=== PATIENT | male | born 1940 | race Caucasian/White ===

== ENCOUNTER 2025-04-06 17:25 | Emergency (ER) | payer OTHER, SELFPAY ==
[2025-04-06 17:41] VITALS: BP 163/70; PULSE 81; RESP 18; TEMP 36.7; O2SAT 97; BMI 32.0
--- NOTE | 2025-04-06 17:54 | EDNOTE_ITS ---
<Statement entered by Estela Disla MD - 04/07/25 09:35> As co-signing physician, I was present and available for consult prn. I concur with the plan and care as documented by the midlevel provider. ED Dental RME/HPI General Chief complaint: Dental/Oral/Throat Stated complaint: Tooth pain right lower jaw Time Seen by Provider: 04/06/25 17:40 Arrival date/time: 04/06/25 17:25 RME / HPI RME / HPI Narrative: 85-year-old male patient came in for evaluation regarding right lower premolar dental cavity with pain and tenderness. Onset of symptoms for the last few days. Denies any difficulty swallowing denies any fever denies any other complaints. No medications taken prior to arrival. Related Data Home Medications ?Medication ?Instructions ?Recorded ?Confirmed ramipril 10 mg capsule 10 mg PO BID 12/07/17 Previous Rx's ?Medication ?Instructions ?Recorded naproxen 500 mg tablet (Naprosyn) 500 mg PO Q12H #10 t abs 12/07/17 amoxicillin 875 mg-potassium 1 tab PO BID #14 tabs 02/23 clavulanate 125 mg tablet ibuprofen 600 mg tablet 600 mg PO Q8H PRN pain #20 t abs 04/06/25 Allergies Allergy/AdvReac Type Severity Reaction Status Date / Time acetaminophen (From Vicodin) Allergy Severe Agitated Verified 04/06/25 17:29 diphenhydramine Allergy Severe Agitated Verified 04/06/25 17:29 hydrocodone (From Vicodin) Allergy Severe Agitated Verified 04/06/25 17:29 kiwi Allergy Severe Swelling Verified 04/06/25 17:29 of Lip/Tongue/Throat Review of Systems Review of Systems Narrative Review of Systems: Review of system reviewed and within normal limits except mentioned in HPI ED Exam Narrative Physical exam: VITAL SIGNS: Reviewed. GENERAL APPEARANCE: Alert and interactive, follows commands, no acute distress, HEAD AND FACE: Non-traumatic. ENT: PERRL, pink conjunctivitis, eyelid no trauma, Mucous membrane moist. Right lower premolar dental cavity, with tenderness, and gumline swelling NECK: Supple, nontender, no nuchal rigidity. CHEST: No tenderness, no crepitus, no paradoxical movement, no retractions. LUNGS: Clear, well ventilated, symmetric, no rales, no wheezing, no ronchi, no stridor, good breath sounds bilaterally. HEART: Regular rate, regular rhythm, no murmur, no gallops. ABDOMEN: Soft, positive bowel sounds, nondistended, no guarding, nontender, no rebound, no masses, RECTAL: Deferred. GENITAL: Deferred. NEUROLOGICAL: Gross motor function intact sensory function intact, Appropriate for age. MUSCULOSKELETAL: low back nontender, full range of motion. EXTREMITIES: Nontender, full range of motion. SKIN: Color pink, dry, no rash, no lacerations, no abrasions, no contusions. LYMPHATICS: Deferred. Course Quality Measures none Orders Category Date Time Status Amoxicillin/Pot Clav 875 [Augmentin 875] Med 04/06/25 17:53 Discontinued 1 tab PO X1 ONE Ibuprofen Tab [Motrin Tab] Med 04/06/25 17:53 Discontinued 800 mg PO X1 ONE Vital Signs Vital signs: Vital Signs Temperature 98.1 F 04/06/25 17:41 Pulse Rate 81 04/06/25 17:41 Respiratory Rate 18 04/06/25 17:41 Blood Pressure 163/70 H 04/06/25 17:41 Pulse Oximetry (%) 97 04/06/25 17:41 Oxygen Delivery Method Room Air 04/06/25 17:41 Dental / Oral MDM Narrative MDM Narrative:: 85-year-old male patient came in for evaluation regarding right lower premolar dental cavity with pain and tenderness. Onset of symptoms for the last few days. Denies any difficulty swallowing denies any fever denies any other complaints. No medications taken prior to arrival. Empiric antibiotic treatment started in the emergency room patient was advised to see dentist tomorrow. Patient data External records reviewed:: None Clinical information provided by:: patient Social determinants that could affect healthcare access:: none Patient has the following chronic illnesses:: None How is presenting disease/condition affected by chronic disease/condition?: no chronic disease Evaluation data The following diagnostics were reviewed and interpreted by me:: other (specify) (None) Lab and/or radiology exams considered but not ordered:: None Interpretation Summary: None Medications / Prescriptions Medications or Prescriptions considered but not ordered:: None Medication administrations:: Medication Administration History Discontinued Medications Amoxicillin/Clavulanate Potassium (Amoxicillin/Pot Clav 875 Tablet) 1 tab PO X1 ONE Stop: 04/06/25 17:54 Ibuprofen (Ibuprofen Tab 400 Mg Tablet) 800 mg PO X1 ONE Stop: 04/06/25 17:54 Augmentin and Motrin Consultations Consultation(s) initiated? (list below): No Diagnosis Dental Differential Diagnosis: dental caries, toothache and dental abscess Most likely diagnosis given after review of the tests above:: Infected dental caries Admission Indicated Admission indicated?: not indicated Admission Request Was there a request for admission?: No Disposition Plan Disposition Plan: Discharge Discharge Attestation Discharge Attestation: The patient and all family members were given an opportunity to ask questions and understood the discharge instructions. Discharge instructions specifically effects, indications for sooner follow up or return to the emergency department, and the expected course of current diagnosis. Patient condition: Stable Discharge Plan Plan Patient Disposition: HOME (Self Care) Discharge Disposition comment: stable Prescriptions/Referrals Prescriptions/Med Rec: New amoxicillin-pot clavulanate 875-125 mg tablet 1 tab PO BID Qty: 14 0RF ibuprofen 600 mg tablet 600 mg PO Q8H PRN (Reason: pain) Qty: 20 0RF No Action ramipril 10 mg Capsule 10 mg PO BID naproxen [Naprosyn] 500 mg tablet 500 mg PO Q12H Qty: 10 0RF Rx Instructions: administer with food or milk Problem List Clinical Impression: Dental caries Patient/Caregiver Discharge Instructions Discharge Activity: activity as tolerated Education Materials: ED Dental Cavity Additional Instructions: Thank you for the opportunity for serving you today. You are stable for discharged . You are advised to: Follow-up with your dentist in 1 to 2 days Return to ED for worsening of symptoms Increase oral fluids Take medication as prescribed Print Language: Togolese Stand Alone Forms: Judie Award Info., Patient Portal Info Letter ANDREA/NESTOR Supervising Physician ANDREA/NESTOR Supervising Physician: MD Lilian
[2025-04-06] MEDS: IBUPROFEN TAB 400 MG TABLET 800 MG PO (18:21)
[2025-04-06] MEDS: AMOXICILLIN/POT CLAV 875 TABLET 1 TAB PO (18:22)
== END 2025-04-06 20:49 | disposition home or self-care (01) ==
LOC: SERX 19:09
PROVIDERS: Emergency Provider Emergency Medicine
DX: K02.9 Dental caries, unspecified (principal)
CPT/HCPCS: 99282; A9270

== ENCOUNTER 2025-05-09 21:21 | Emergency (ER) | payer OTHER, SELFPAY ==
[2025-05-09 21:23] VITALS: BMI 32.1
[2025-05-09 21:37] VITALS: BP 187/101; BP 191/92; PULSE 92; RESP 20; TEMP 36.8; O2SAT 96
--- NOTE | 2025-05-09 21:46 | PD.EDADULT ---
ED General RME/HPI General Chief complaint: Skin/Abscess/Foreign Body Stated complaint: BILAT LOWER LEG PAIN SWELLING AND ITCHING Time Seen by Provider: 05/09/25 21:41 Arrival date/time: 05/09/25 21:21 CC: Itchy rash to both lower extremities HPI ongoing for the past several months but is worse in the last couple of days with the itching becoming so intense denies fever chills repetitive motion no prior history of similar events. Has not seen primary care doctor in a long time . Related Data Home Medications ?Medication ?Instructions ?Recorded ?Confirmed ramipril 10 mg capsule 10 mg PO BID 12/07/17 12/07/17 Previous Rx's ?Medication ?Instructions ?Recorded naproxen 500 mg tablet (Naprosyn) 500 mg PO Q12H #10 tabs 12/07/17 amoxicillin 875 mg-potassium 1 tab PO BID #14 tabs 04/06/25 clavulanate 125 mg tablet ibuprofen 600 mg tablet 600 mg PO Q8H PRN pain #20 tabs 04/06/25 furosemide 20 mg tablet (Lasix) 20 mg PO QAM #4 tabs 05/09/25 lisinopril 10 1 tab PO QDAY #30 tabs 05/09/25 mg-hydrochlorothiazide 12.5 mg tablet clindamycin HCl 300 mg capsule 300 mg PO TID 10 days #30 caps 05/14/25 hydrocodone 5 mg-acetaminophen 325 1 tab PO BID PRN pain 7 days #14 05/14/25 mg tablet tabs Allergies Allergy/AdvReac Type Severity Reaction Status Date / Time kiwi Allergy Severe Swelling Verified 05/14/25 12:49 of Lip/Tongue/Throat amoxicillin Allergy Vomiting Verified 05/14/25 12:49 Review of Systems Review of Systems Narrative Review of Systems: GEN: No fever, no chills, no weight loss EYES: No discharge, no visual changes, no pain HEENT: No ear pain, no congestion, no sore throat PULM: No shortness of breath, no cough, no congestion CV: No chest pain, no dyspnea on exertion, no palpitations GI: No nausea, no vomiting, no diarrhea, no pain, no constipation : No frequency, no urgency, no dysuria MUSC/SKEL: No joint pain, no back pain SKIN: + rash PSYCH: No hallucinations, no depression HEME/LYMPH: No easy bleeding or bruising tendencies NEURO: No weakness, no headache Past Medical History Past Medical History CARDIAC: Positive Hypertension; Negative Congestive Heart Failure RESPIRATORY: Negative Chronic Obstructive Pulmonary Disease (COPD) GENITOURINARY: Negative Renal Disease ENDOCRINE: Negative Diabetes Mellitus Type 1 or Diabetes Mellitus Type 2 Social History SMOKING STATUS: Never smoker ED Exam Narrative Physical exam: [General: Not in any acute distress Head normocephalic HEENT: Within acceptable limits Neck is supple nontender Chest equal chest rise nontender to palpation Respiratory: Clear to auscultation no wheezes crackles or rubs CV: Rate rhythm is regular no murmurs rubs or clicks Abdomen is distended secondary to body habitus soft nontender no masses positive bowel sounds all 4 quadrants Back: No CVA tenderness no spinous process tenderness from cervical spine thoracic and lumbar spine Skin: Thickened circumferential skin around both lower extremities extending from the ankle just proximal to the knee. Typical of venous insufficiency. Skin is intact no open lesions induration ulceration crepitus oozing or bleeding. Otherwise elsewhere the skin is intact no petechiae rash induration ulceration or crepitus Extremities: Moving all extremity against resistance cap refill less than 2 seconds neurosensory intact. 2+ pitting edema in both lower extremities that extends down to the dorsum of foot. No pitting edema to the calf of the lower leg. Neuro: Awake alert oriented x3 Glascow coma 15 no focal deficits] Course Quality Measures none Orders Category Date Time Status CBC Stat Lab 05/09/25 22:18 Completed CMP [Comprehensive Metabolic Panel] Stat Lab 05/09/25 22:18 Completed Vital Signs Vital signs: Vital Signs Temperature 98.2 F 05/09/25 21:37 Pulse Rate 92 05/09/25 21:37 Respiratory Rate 20 05/09/25 21:37 Blood Pressure 187/101 H 05/09/25 21:37 Pulse Oximetry (%) 96 05/09/25 21:37 Oxygen Delivery Method Room Air 05/09/25 21:37 Discharge Plan Plan Patient Disposition: HOME (Self Care) Patient condition on transfer: Stable Prescriptions/Referrals Prescriptions/Med Rec: New furosemide [Lasix] 20 mg tablet 20 mg PO QAM Qty: 4 0RF lisinopril-hydrochlorothiazide 10-12.5 mg tablet 1 tab PO QDAY Qty: 30 0RF No Action ramipril 10 mg Capsule 10 mg PO BID naproxen [Naprosyn] 500 mg tablet 500 mg PO Q12H Qty: 10 0RF Rx Instructions: administer with food or milk amoxicillin-pot clavulanate 875-125 mg tablet 1 tab PO BID Qty: 14 0RF ibuprofen 600 mg tablet 600 mg PO Q8H PRN (Reason: pain) Qty: 20 0RF clindamycin HCl 300 mg capsule 300 mg PO TID 10 Days Qty: 30 0RF hydrocodone-acetaminophen 5-325 mg tablet 1 tab PO BID MDD 2 PRN (Reason: pain) 7 Days Qty: 14 0RF Referrals: Naseem Rodriguez MD [Physician, Family Practice] - In 1 week Problem List Clinical Impression: Bilateral edema of lower extremity, Hypertension, Itch of skin Patient/Caregiver Discharge Instructions Education Materials: Hypertension Dc, ED Leg Swelling in Both Legs Additional Instructions: Take the medication as prescribed please follow-up with your primary care doctor. If there is a worsening of symptoms return the emergency room for further evaluation. Print Language: Greek Stand Alone Forms: Judie Award Info., Patient Portal Info Letter PA/DETAILER FURNITURE Supervising Physician PA/DETAILER FURNITURE Supervising Physician: Ck Ferrera ENP [facility] Clinical Information Provided by patient Medical Records Reviewed [facility] Meds/Rx Considered, not Ordered None Labs/Rad/Tests considered, not Ordered None Chronic Illness/Social Conditions Add or document further as needed: Hypertension. Patient is not on any medications currently as he has not seen his physician in a long time. Imaging Imaging interpretation: none
[2025-05-09 22:41] LABS: Basophils # (Auto) 0.0 Thou/mm3 (0.0-0.2); Basophils % (Auto) 0 % (0-2.5); Eosinophils # (Auto) 0.3 Thou/mm3 (0.0-0.5); Eosinophils % (Auto) 3 % (0-10); Hematocrit 41.5 % (41.0-53.0); Hemoglobin 13.9 g/dL (13.5-16.0); Immature Granulocytes Auto 0.03 Thou/mm3 (0.00-0.00); Lymphocytes # (Auto) 2.7 Thou/mm3 (1.0-4.8); Lymphocytes % (Auto) 32 % (10-50); Mean Corpuscular HGB Conc 33.5 g/dl (31.0-37.0); Mean Corpuscular Hemoglobin 31.4 pg (25.0-35.0); Mean Corpuscular Volume 94 fL (80-100); Monocytes # (Auto) 1.0 Thou/mm3 (0.0-0.8); Monocytes % (Auto) 12 % (0-12); Neutrophils # (Auto) 4.5 Thou/mm3 (1.8-7.7); Neutrophils % (Auto) 52 % (37-80); Nucleated Red Blood Cell # 0.00 Thou/mm3 (0.00-0.00); Nucleated Red Blood Cell % 0 /100 WBC (0); Platelet Count 192 Thou/mm3 (140-440); RDW Standard Deviation 46.8 fL (35.1-43.9); Red Blood Count 4.43 Miln/mm3 (4.50-5.90); White Blood Count 8.5 Thou/mm3 (3.8-10.6)
[2025-05-09 22:59] LABS: Alanine Aminotransferase 29 U/L (10-49); Albumin, Serum 4.1 gm/dL (3.4-4.8); Albumin/Globulin Ratio 1.4 (1.2-2.2); Alkaline Phosphatase 62 U/L (46-116); Anion Gap 9 (7-16); Aspartate Amino Transferase 24 U/L (0-34); BUN/Creatinine Ratio 10 Ratio (12-20); Bilirubin,Total 0.4 mg/dL (0.3-1.2); Blood Urea Nitrogen 13 mg/dL (9-23); Calcium 9.2 mg/dL (8.3-10.6); Calcium (Corrected) 9.2 mg/dL (8.5-10.1); Carbon Dioxide 29.7 mMol/L (20.0-31.0); Chloride 102 mMol/L (98-107); Creatinine (Component) 1.3 mg/dL (0.6-1.3); Estimated Creatinine Clearance 46.8 mL/min (>60); Globulin 3.0 gm/dL (2.3-3.5); Glucose 139 mg/dL (74-106); Osmolality,Calculated 283 (275-295); Potassium 4.0 mMol/L (3.4-5.1); Sodium 141 mMol/L (136-145); Total Protein 7.1 gm/dL (5.7-8.2); eGFR 55 See Note
== END 2025-05-09 23:18 | disposition home or self-care (01) ==
PROVIDERS: Registered Nurse General Practice; Emergency Provider Emergency Medicine
DX: L29.9 Pruritus, unspecified (principal); R60.0 Localized edema; I10 Essential (primary) hypertension
CPT/HCPCS: 36415; 80053; 85025; 99283

== ENCOUNTER 2025-05-14 12:46 | Emergency (ER) | payer OTHER, SELFPAY ==
[2025-05-14 13:50] VITALS: BP 212/103; BP 212/109; PULSE 76; RESP 20; TEMP 36.5; O2SAT 97
[2025-05-14 14:40] VITALS: BP 195/100; PULSE 72
[2025-05-14] MEDS: cefTRIAXone 1,000 MG, LIDOCAINE 1% 20 ML 2.1 ML IM (14:41)
[2025-05-14] MEDS: HYDROcodone/APAP 5/325 TABLET 1 TAB PO ×2 (14:44→16:18)
--- NOTE | 2025-05-14 15:01 | EDNOTE_ITS ---
<Statement entered by Estela Disla MD - 05/15/25 06:02> As co-signing physician, I was present and available for consult prn. I concur with the plan and care as documented by the midlevel provider. ED Dental RME/HPI General Chief complaint: Dental/Oral/Throat Stated complaint: RIGHT SIDED TOOTH PAIN/SWOLLEN JAW Time Seen by Provider: 05/14/25 13:42 Arrival date/time: 05/14/25 12:46 Limitations: no limitations RME / HPI RME / HPI Narrative: 85-year-old male here for right sided tooth jaw and lip swelling x 3 days. Has not been able to see the dentist. Regarding his very elevated blood pressure states he has had it like that since he was 18 and does not plan to do anything about it. Denies shortness of breath chest pain or headache. Denies history of diabetes. Is allergic to amoxicillin. Related Data Home Medications ?Medication ?Instructions ?Recorded ?Confirmed ramipril 10 mg capsule 10 mg PO BID 12/07/17 Previous Rx's ?Medication ?Instructions ?Recorded naproxen 500 mg tablet (Naprosyn) 500 mg PO Q12H #10 t abs 12/07/17 amoxicillin 875 mg-potassium 1 tab PO BID #14 tabs 02/23 clavulanate 125 mg tablet ibuprofen 600 mg tablet 600 mg PO Q8H PRN pain #20 t abs 04/06/25 furosemide 20 mg tablet (Lasix) 20 mg PO QAM #4 tabs 0 05/09/25 lisinopril 10 1 tab PO QDAY #30 tabs 05/09 mg-hydrochlorothiazide 12.5 mg tablet clindamycin HCl 300 mg capsule 300 mg PO TID 10 days # 30 caps 05/14/25 hydrocodone 5 mg-acetaminophen 325 1 tab PO BID PRN pa in 7 days #14 05/14/25 mg tablet tabs Allergies Allergy/AdvReac Type Severity Reaction Status Date / Time kiwi Allergy Severe Swelling Verified 05/14/25 12:49 of Lip/Tongue/Throat amoxicillin Allergy Vomiting Verified 05/14/25 12:49 Review of Systems Review of Systems Systems Reviewed: All systems reviewed, normal except as documented Constitutional Constitutional: Denies fever(s) ENT Ears, Nose, Mouth, and Throat: Reports as per HPI ED Exam General Limitations: Present no limitations General appearance: Present alert and in no apparent distress Head Head exam: Present atraumatic Eye Eye exam: Present normal appearance, PERRL and EOMI ENT ENT exam: Present mucous membranes moist, TM's normal bilaterally and other (Poor dentition, right cheek swelling, multiple dental caries, no periapical abscess) Neck Neck exam: Present normal inspection, full ROM and trachea midline Respiratory Respiratory exam: Present normal lung sounds bilaterally Cardiovascular Cardiovascular exam: Present regular rate, normal rhythm and normal heart sounds Extremities Exam Extremities exam: Present normal inspection and full ROM Psychiatric Psychiatric exam: Present normal affect and normal mood Skin Skin exam: Present warm, dry, intact and normal color Course Quality Measures none Orders Category Date Time Status HYDROcodone*/APAP 5/325 [Patton 5/325] Med 05/14/25 14:05 Discontinued 1 tab PO X1 ONE HYDROcodone*/APAP 5/325 [Patton 5/325] Med 05/14/25 16:12 Discontinued 1 tab PO X1 ONE Ketorolac Inj [Toradol Inj] Med 05/14/25 16:12 Discontinued 30 mg IM X1 ONE Lisinopril [Prinivil] Med 05/14/25 14:05 Discontinued 20 mg PO X1 ONE cefTRIAXone [Rocephin] 1,000 mg Med 05/14/25 14:07 Discontinued Lidocaine 1% 20 ml [Xylocaine 1% 20 ML] 2.1 ml IM X1 hydrALAZINE HCL [Apresoline] Med 05/14/25 14:05 Discontinued 10 mg PO X1 ONE Vital Signs Vital signs: Vital Signs Temperature 97.7 F 05/14/25 13:50 Pulse Rate 76 05/14/25 13:50 Respiratory Rate 20 05/14/25 13:50 Blood Pressure 212/109 H 05/14/25 13:50 Pulse Oximetry (%) 97 05/14/25 13:50 Oxygen Delivery Method Room Air 05/14/25 13:50 Dental / Oral MDM Narrative MDM Narrative:: 85-year-old male with dental problem however incidental finding of elevated blood pressure. Although malignant hypertension was considered patient was reluctant and hesitant to take medications here. Pain was controlled. Medications for pain antibiotics and for hypertension was sent home advised follow-up with PCP return to ER symptoms worsen Patient data External records reviewed:: [facility] previous records Clinical information provided by:: patient and family Social determinants that could affect healthcare access:: other (specify) (Elderly patient partially deaf) Patient has the following chronic illnesses:: htn How is presenting disease/condition affected by chronic disease/condition?: unef fected by Evaluation data The following diagnostics were reviewed and interpreted by me:: other (specify) Lab and/or radiology exams considered but not ordered:: Cardiac workup was considered once blood pressure was found however patient was refusing further workup Interpretation Summary: No imaging or labs considered Medications / Prescriptions Medications or Prescriptions considered but not ordered:: Second hypertensive agent was considered however given age opted for 1 agent Medication administrations:: Medication Administration History Discontinued Medications Hydrocodone Bitart/Acetaminophen (Hydrocodone/Apap 5/325 Tablet) 1 tab PO X1 ONE Stop: 05/14/25 14:06 Last Admin: 05/14/25 14:44 Dose: 1 tab Documented By: SHEA Hydrocodone Bitart/Acetaminophen (Hydrocodone/Apap 5/325 Tablet) 1 tab PO X1 ONE Stop: 05/14/25 16:13 Last Admin: 05/14/25 16:18 Dose: 1 tab Documented By: SHEA Ceftriaxone Sodium 1,000 mg/ (Lidocaine HCl 2.1 ml) 0 mg IM X1 ONE Stop: 05/14/25 14:08 Last Admin: 05/14/25 14:41 Dose: 2.1 mg Documented By: SHEA Hydralazine HCl (Hydralazine Hcl 10 Mg Tablet) 10 mg PO X1 ONE Stop: 05/14/25 14:06 Last Admin: 05/14/25 15:05 Dose: 10 mg Documented By: SHEA Ketorolac Tromethamine (Ketorolac Inj 30 Mg/Ml Vial) 30 mg IM X1 ONE Stop: 05/14/25 16:13 Last Admin: 05/14/25 16:19 Dose: 30 mg Documented By: SHEA Lisinopril (Lisinopril 20 Mg Tablet) 20 mg PO X1 ONE Stop: 05/14/25 14:06 Last Admin: 05/14/25 14:40 Dose: 20 mg Documented By: SHEA See above Consultations Consultation(s) initiated? (list below): No Diagnosis Dental Differential Diagnosis: gingival abscess, dental caries, toothache, dental abscess, fracture of tooth and other (Ludewig's angina) Most likely diagnosis given after review of the tests above:: Dental caries Facial swelling Hypertension poorly controlled Admission Indicated Admission indicated?: not indicated Admission Request Was there a request for admission?: No Disposition Plan Disposition Plan: Discharge Discharge Attestation Discharge Attestation: The patient and all family members were given an opportunity to ask questions and understood the discharge instructions. Discharge instructions specifically effects, indications for sooner follow up or return to the emergency department, and the expected course of current diagnosis. Patient condition: Stable Discharge Plan Plan Patient Disposition: HOME (Self Care) Discharge Disposition comment: f.u with pcp in 2-3days Prescriptions/Referrals Prescriptions/Med Rec: New clindamycin HCl 300 mg capsule 300 mg PO TID 10 Days Qty: 30 0RF hydrocodone-acetaminophen 5-325 mg tablet 1 tab PO BID MDD 2 PRN (Reason: pain) 7 Days Qty: 14 0RF No Action ramipril 10 mg Capsule 10 mg PO BID naproxen [Naprosyn] 500 mg tablet 500 mg PO Q12H Qty: 10 0RF Rx Instructions: administer with food or milk amoxicillin-pot clavulanate 875-125 mg tablet 1 tab PO BID Qty: 14 0RF ibuprofen 600 mg tablet 600 mg PO Q8H PRN (Reason: pain) Qty: 20 0RF furosemide [Lasix] 20 mg tablet 20 mg PO QAM Qty: 4 0RF lisinopril-hydrochlorothiazide 10-12.5 mg tablet 1 tab PO QDAY Qty: 30 0RF Referrals: Brain Phillips MD [Primary Care Provider, Family Practice] - In 1 week Problem List Clinical Impression: Dental caries, Facial edema, Hypertension Patient/Caregiver Discharge Instructions Education Materials: ED Dental Cavity Print Language: Italian Stand Alone Forms: Judie Award Info., Patient Portal Info Letter PA/STAFFING DIRECTOR Supervising Physician PA/STAFFING DIRECTOR Supervising Physician: Dr. disla
[2025-05-14 15:05] VITALS: BP 227/99; PULSE 74
[2025-05-14 16:04] VITALS: BP 203/100; BP 205/106; PULSE 85; RESP 18; TEMP 36.7; O2SAT 99
[2025-05-14] MEDS: KETOROLAC INJ 30 MG/ML VIAL IM (16:19)
--- NOTE | 2025-05-14 16:33 | PC.NURSE ---
PT REPEATEDLY COMING UP TO THIS RN TO REQUEST PAIN MEDICATION, PT EDUCATED THAT HE WAS MEDICATED ABOUT 10 MINUTES AGO FOR THE SECOND TIME, PT DENIED IT SAYING HE WAS NOT MEDICATED, FELLOW NURSE CAME OUT AND CONFIRMED SHE DID MEDICATE HIM, BUT HE THOUGHT IT WAS SUPPOSED TO PROVIDE INSTANT RELIEF, PT EDUCATED IT TAKES A LITTLE LONGER W/PO BUT THE IM SHOULD KICK IN QUICKER.
[2025-05-14 17:13] VITALS: BP 180/99; BP 182/89; TEMP 36.9
== END 2025-05-14 17:24 | disposition home or self-care (01) ==
PROVIDERS: Emergency Provider Emergency Medicine; PCP Family Medicine
DX: K02.9 Dental caries, unspecified (principal); I10 Essential (primary) hypertension
CPT/HCPCS: 96372; 99283; J0696; J1885; J3490; A9270

== ENCOUNTER 2025-05-26 18:58 | Emergency (ER) | payer OTHER, SELFPAY ==
[2025-05-26 19:28] VITALS: BP 184/85; PULSE 83; RESP 16; TEMP 37.1; O2SAT 96
--- NOTE | 2025-05-26 19:48 | EDNOTE_ITS ---
ED Skin Abcess FB-RME/HPI General Chief complaint: Skin/Abscess/Foreign Body Stated complaint: right lower leg redness, itchy, swelling x 2 days Time Seen by Provider: 05/26/25 19:33 Arrival date/time: 05/26/25 18:58 85M with history of HTN present to ED with several months of intermittent BLE (R>L) redness, itchiness and swelling. Patient does not take his meds and hasn't mentioned this to his PCP. Limitations: no limitations Related Data Home Medications ?Medication ?Instructions ?Recorded ?Confirmed ramipril 10 mg capsule 10 mg PO BID 12/07/17 Previous Rx's ?Medication ?Instructions ?Recorded naproxen 500 mg tablet (Naprosyn) 500 mg PO Q12H #10 t abs 12/07/17 amoxicillin 875 mg-potassium 1 tab PO BID #14 tabs 02/23 clavulanate 125 mg tablet ibuprofen 600 mg tablet 600 mg PO Q8H PRN pain #20 t abs 04/06/25 furosemide 20 mg tablet (Lasix) 20 mg PO QAM #4 tabs 0 05/09/25 lisinopril 10 1 tab PO QDAY #30 tabs 05/09 mg-hydrochlorothiazide 12.5 mg tablet diphenhydramine HCl 2 % topical gel 1 applic topical B ID PRN itching 05/26/25 #103 mL Allergies Allergy/AdvReac Type Severity Reaction Status Date / Time kiwi Allergy Severe Swelling Verified 05/26/25 19:02 of Lip/Tongue/Throat amoxicillin Allergy Vomiting Verified 05/26/25 19:02 Review of Systems Review of Systems Systems Reviewed: All systems reviewed, normal except as documented Integumentary/Breasts Skin/Breast: Reports as per HPI, Reports pruritus and Reports rash Past Medical History Past Medical History CARDIAC: Positive Hypertension; Negative Congestive Heart Failure RESPIRATORY: Negative Chronic Obstructive Pulmonary Disease (COPD) GENITOURINARY: Negative Renal Disease ENDOCRINE: Negative Diabetes Mellitus Type 1 or Diabetes Mellitus Type 2 Social History SMOKING STATUS: Former smoker ED Exam General Limitations: Present no limitations General appearance: Present alert and in no apparent distress Head Head exam: Present atraumatic Neck Neck exam: Present normal inspection, full ROM and trachea midline Chest Chest inspection: Present normal inspection and symmetric chest wall rise Extremities Exam Extremities exam: Present normal inspection and full ROM Neurological Exam Neurological exam: Present alert and oriented X3 Psychiatric Psychiatric exam: Present normal affect and normal mood Skin Skin exam: Present warm, dry, intact, normal color and rash Course Quality Measures none Orders Category Date Time Status Wound Care NOW Care 05/26/25 19:34 Active Vital Signs Vital signs: Vital Signs Temperature 98.8 F 05/26/25 19:28 Pulse Rate 83 05/26/25 19:28 Respiratory Rate 16 05/26/25 19:28 Blood Pressure 184/85 H 05/26/25 19:28 Pulse Oximetry (%) 96 05/26/25 19:28 Oxygen Delivery Method Room Air 05/26/25 19:28 O2 at 96% on RA and WNLs Skin / Abscess / Foreign Body MDM Narrative MDM Narrative:: 85M with history of HTN present to ED with several months of intermittent BLE (R>L) redness, itchiness and swelling. Patient does not take his meds and hasn't mentioned this to his PCP. Physical exam reveals BLE (R>L) dry skin and minor open wounds and swelling. Patient is afebrile, calm, and alert. Wound care done. Meds and career technical counselor given. Patient data External records reviewed:: [facility] previous records Clinical information provided by:: patient Social determinants that could affect healthcare access:: none Patient has the following chronic illnesses:: HTN How is presenting disease/condition affected by chronic disease/condition?: uneffected by Evaluation data The following diagnostics were reviewed and interpreted by me:: other (specify) (none) Lab and/or radiology exams considered but not ordered:: not ordered Interpretation Summary: n/a Medications / Prescriptions Medications or Prescriptions considered but not ordered:: not ordered Medication administrations:: n/a Consultations Consultation(s) initiated? (list below): No Diagnosis Skin/Abscess Differential Diagnosis: abscess of skin or subcutaneous tissue, viral exanthem, dermatophytosis, urticaria, herpes zoster, allergic reaction to drug, cellulitis, eczema, insect bites, impetigo, contact dermatitis and other (venous stasis dermatitis) Most likely diagnosis given after review of the tests above:: venous stasis dermatitis Admission Indicated Admission indicated?: not indicated Admission Request Was there a request for admission?: No Disposition Plan Disposition Plan: Discharge Discharge Attestation Discharge Attestation: The patient and all family members were given an opportunity to ask questions and understood the discharge instructions. Discharge instructions specifically effects, indications for sooner follow up or return to the emergency department, and the expected course of current diagnosis. Patient condition: Stable Discharge Plan Plan Patient Disposition: HOME (Self Care) Discharge Disposition comment: Stable Prescriptions/Referrals Prescriptions/Med Rec: New diphenhydramine HCl 2 % gel 1 applic topical BID PRN (Reason: itching) Qty: 103 0RF No Action ramipril 10 mg Capsule 10 mg PO BID naproxen [Naprosyn] 500 mg tablet 500 mg PO Q12H Qty: 10 0RF Rx Instructions: administer with food or milk amoxicillin-pot clavulanate 875-125 mg tablet 1 tab PO BID Qty: 14 0RF ibuprofen 600 mg tablet 600 mg PO Q8H PRN (Reason: pain) Qty: 20 0RF furosemide [Lasix] 20 mg tablet 20 mg PO QAM Qty: 4 0RF lisinopril-hydrochlorothiazide 10-12.5 mg tablet 1 tab PO QDAY Qty: 30 0RF Problem List Clinical Impression: Venous stasis dermatitis Patient/Caregiver Discharge Instructions Education Materials: CVI Tx Additional Instructions: Please follow-up with PCP within 24-48 hours and return immediately if symptoms worsen. Can call [facility]: [phone] Need to take prescribed meds. Print Language: Malian Stand Alone Forms: Patient Portal Info Letter ANDREA/NESTOR Supervising Physician ANDREA/NESTOR Supervising Physician: Dr. Triana
== END 2025-05-26 21:14 | disposition home or self-care (01) ==
LOC: SERX 20:23
PROVIDERS: Emergency Provider Emergency Medicine; PCP Family Medicine
DX: I87.2 Venous insufficiency (chronic) (peripheral) (principal)
CPT/HCPCS: 99284

== ENCOUNTER 2025-06-03 08:07 | Emergency (ER) | payer OTHER, SELFPAY ==
[2025-06-03 08:08] VITALS: BMI 32.1
[2025-06-03 08:17] VITALS: BP 182/99; PULSE 71; RESP 18; TEMP 37; O2SAT 99
--- NOTE | 2025-06-03 08:20 | PD.EDDENTL ---
ED Dental RME/HPI General Chief complaint: Dental/Oral/Throat Stated complaint: Tooth pain Time Seen by Provider: 06/03/25 08:18 Source: patient Arrival date/time: 06/03/25 08:07 85-year-old male with a history of hypertension presents to the emergency room with a chief complaint of a broken tooth that is causing him discomfort when scraping against his tongue x 1 month Mode of arrival: ambulatory Limitations: no limitations Related Data Home Medications ?Medication ?Instructions ?Recorded ?Confirmed ramipril 10 mg capsule 10 mg PO BID 12/07/17 12/07/17 Previous Rx's ?Medication ?Instructions ?Recorded naproxen 500 mg tablet (Naprosyn) 500 mg PO Q12H #10 tabs 12/07/17 amoxicillin 875 mg-potassium 1 tab PO BID #14 tabs 04/06/25 clavulanate 125 mg tablet ibuprofen 600 mg tablet 600 mg PO Q8H PRN pain #20 tabs 04/06/25 furosemide 20 mg tablet (Lasix) 20 mg PO QAM #4 tabs 05/09/25 lisinopril 10 1 tab PO QDAY #30 tabs 05/09/25 mg-hydrochlorothiazide 12.5 mg tablet diphenhydramine HCl 2 % topical gel 1 applic topical BID PRN itching 05/26/25 #103 mL Allergies Allergy/AdvReac Type Severity Reaction Status Date / Time kiwi Allergy Severe Swelling Verified 06/03/25 08:10 of Lip/Tongue/Throat amoxicillin Allergy Vomiting Verified 06/03/25 08:10 Review of Systems Review of Systems Systems Reviewed: All systems reviewed, normal except as documented Constitutional Constitutional: Reports system reviewed and no additional complaints, except as documented, Denies fatigue, Denies fever(s), Denies headache(s) and Denies weakness Eyes Eyes: Reports system reviewed and no additional complaints, except as documented, Denies blurry vision and Denies change in vision ENT Ears, Nose, Mouth, and Throat: Reports system reviewed and no additional complaints, except as documented, Denies otalgia, Denies headache(s), Denies nasal congestion, Denies throat swelling and Denies vertigo Cardiovascular Cardiovascular: Reports system reviewed and no additional complaints, except as documented, Denies chest pain, Denies dyspnea and Denies dyspnea on exertion Respiratory Respiratory: Reports system reviewed and no additional complaints, except as documented, Denies chest congestion, Denies cough, Denies dyspnea, Denies dyspnea on exertion and Denies wheezing Gastrointestinal Gastrointestinal: Reports system reviewed and no additional complaints, except as documented, Denies abdominal pain, Denies cramping, Denies nausea and Denies vomiting Genitourinary Genitourinary: Reports system reviewed and no additional complaints, except as documented, Denies dysuria and Denies hematuria Musculoskeletal Musculoskeletal: Reports system reviewed and no additional complaints, except as documented and Denies back pain Integumentary/Breasts Skin/Breast: Reports system reviewed and no additional complaints, except as documented and Denies wounds Neurologic Neurologic: Reports system reviewed and no additional complaints, except as documented, Denies confusion, Denies headache(s), Denies lack of coordination, Denies vertigo and Denies weakness Psychiatric Psychiatric: Reports system reviewed and no additional complaints, except as documented, Denies anxiety, Denies confusion, Denies depression, Denies paranoia, Denies suicidal ideation and Denies tactile hallucinations Endocrine Endocrine: Reports system reviewed and no additional complaints, except as documented and Denies fatigue Hematologic/Lymphatic Hematologic/Lymphatic: Reports system reviewed and no additional complaints, except as documented and Denies lymphadenopathy Allergic/Immunologic Allergic/Immunologic: Reports system reviewed and no additional complaints, except as documented, Denies throat swelling, Denies urticaria and Denies wheezing Past Medical History Past Medical History CARDIAC: Positive Hypertension; Negative Congestive Heart Failure RESPIRATORY: Negative Chronic Obstructive Pulmonary Disease (COPD) GENITOURINARY: Negative Renal Disease ENDOCRINE: Negative Diabetes Mellitus Type 1 or Diabetes Mellitus Type 2 Social History SMOKING STATUS: Never smoker ED Exam General Limitations: Present no limitations General appearance: Present alert and in no apparent distress Head Head exam: Present atraumatic Eye Eye exam: Present normal appearance, PERRL and EOMI ENT ENT exam: Present normal exam, normal oropharynx and mucous membranes moist Expanded ENT Exam Teeth exam: Present fractured tooth # Teeth numbered:  1. Fractured Neck Neck exam: Present normal inspection, full ROM and trachea midline Chest Chest inspection: Present normal inspection and symmetric chest wall rise Respiratory Respiratory exam: Present normal lung sounds bilaterally Cardiovascular Cardiovascular exam: Present regular rate, normal rhythm and normal heart sounds Abdominal Exam Abdominal exam: Present soft and normal bowel sounds Extremities Exam Extremities exam: Present normal inspection and full ROM Back Exam Back exam: Present normal inspection and full ROM Neurological Exam Neurological exam: Present alert, oriented X3 and CN II-XII intact Psychiatric Psychiatric exam: Present normal affect and normal mood Skin Skin exam: Present warm, dry, intact and normal color Course Quality Measures none Vital Signs Vital signs: Vital Signs Temperature 98.6 F 06/03/25 08:17 Pulse Rate 71 06/03/25 08:17 Respiratory Rate 18 06/03/25 08:17 Blood Pressure 182/99 H 06/03/25 08:17 Pulse Oximetry (%) 99 06/03/25 08:17 Oxygen Delivery Method Room Air 06/03/25 08:17 Dental / Oral MDM Narrative MDM Narrative:: 85-year-old male with a history of hypertension presents to the emergency room with a chief complaint of a broken tooth that is causing him discomfort when scraping against his tongue x 1 month Patient is hemodynamically stable and in no apparent distress Patient denies any actual dental pain gum pain swelling. Patient states he has a fractured tooth on the bottom right side of his mouth. This fractured tooth is causing him irritation and a scraping on his tongue that is causing him discomfort. Patient was under the impression that coming to the emergency room they will remove that tooth. Patient denies any dental or gum pain. Patient was educated to follow-up with his dentist and return to the emergency room for any evidence of worsening signs or symptoms Patient data External records reviewed:: [facility] previous records Clinical information provided by:: patient Social determinants that could affect healthcare access:: none Patient has the following chronic illnesses:: No chronic illness How is presenting disease/condition affected by chronic disease/condition?: no chronic disease Evaluation data The following diagnostics were reviewed and interpreted by me:: lab results and radiology exam(s) Lab and/or radiology exams considered but not ordered:: Labs and radiology exams considered and ordered Interpretation Summary: N/A Medications / Prescriptions Medications or Prescriptions considered but not ordered:: No medication given Medication administrations:: No medication given Consultations Consultation(s) initiated? (list below): No Diagnosis Dental Differential Diagnosis: gingival abscess, dental caries, toothache, dental abscess and fracture of tooth Most likely diagnosis given after review of the tests above:: Fracture of tooth Admission Indicated Admission indicated?: not indicated Admission Request Was there a request for admission?: No Disposition Plan Disposition Plan: Discharge Discharge Attestation Discharge Attestation: The patient and all family members were given an opportunity to ask questions and understood the discharge instructions. Discharge instructions specifically effects, indications for sooner follow up or return to the emergency department, and the expected course of current diagnosis. Patient condition: Stable Discharge Plan Plan Patient Disposition: HOME (Self Care) Discharge Disposition comment: Stable Prescriptions/Referrals Prescriptions/Med Rec: No Action ramipril 10 mg Capsule 10 mg PO BID naproxen [Naprosyn] 500 mg tablet 500 mg PO Q12H Qty: 10 0RF Rx Instructions: administer with food or milk amoxicillin-pot clavulanate 875-125 mg tablet 1 tab PO BID Qty: 14 0RF ibuprofen 600 mg tablet 600 mg PO Q8H PRN (Reason: pain) Qty: 20 0RF diphenhydramine HCl 2 % gel 1 applic topical BID PRN (Reason: itching) Qty: 103 0RF furosemide [Lasix] 20 mg tablet 20 mg PO QAM Qty: 4 0RF lisinopril-hydrochlorothiazide 10-12.5 mg tablet 1 tab PO QDAY Qty: 30 0RF Problem List Clinical Impression: Tooth pain Patient/Caregiver Discharge Instructions Education Materials: ED Dental Pain Additional Instructions: Please follow-up with your dentist in the next 24 to 48 hours Your dentist will remove this tooth and it will not be scraping your tongue anymore For any evidence of worsening signs or symptoms return to emergency room immediately Print Language: South Korean Stand Alone Forms: Judie Award Info., Patient Portal Info Letter PA/SENIOR [employer] ADMINISTRATOR Supervising Physician PA/SENIOR LINUX UNIX ADMINISTRATOR Supervising Physician: Dr. Whyte
== END 2025-06-03 08:38 | disposition home or self-care (01) ==
LOC: SERX 08:21
PROVIDERS: Emergency Provider Family Medicine; PCP Family Medicine
DX: S02.5XXA Fracture of tooth (traumatic), initial encounter for closed fracture (principal); X58.XXXA Exposure to other specified factors, initial encounter
CPT/HCPCS: 99281